=== PATIENT | female | born 1960 | race Caucasian/White ===

== ENCOUNTER 2024-10-23 11:44 | Emergency (ER) | payer OTHER, MEDICAID ==
[~2024-10-23] VITALS: Ht 162.6 cm; Wt 84.0 kg
[2024-10-23 12:25] LABS: Basophils # (auto) 0 10 ^3/uL (0-0.2); Basophils % (auto) 0.5 % (0.0-2.0); Eosinophils # (auto) 0.1 10 ^3/uL (0-0.8); Eosinophils % (auto) 1.8 % (0.0-7.0); Hematocrit 36.3 % (36.0-46.0); Hemoglobin 12.4 g/dL (12.2-16.2); Lymphocytes # (auto) 1.9 10 ^3/uL (0.4-5.4); Mean Corpuscular Hemoglobin 30.2 pg (28.0-32.0); Mean Corpuscular Hgb Conc. 34.1 g/dL (32.0-36.0); Mean Corpuscular Volume 88.8 fL (80.0-100.0); Monocytes # (auto) 0.5 10 ^3/uL (0-1.3); Monocytes % (auto) 10.5 % (0.0-12.0); Neutrophils # (auto) 2.3 10 ^3/uL (1.6-8.6); Neutrophils % (auto) 48.2 % (37.0-80.0); Nucleated Red Blood Cells % 0.1 %; Platelet Count (auto) 313 10^3/uL (140-450); Red Blood Cells 4.09 10^6/uL (4.0-5.20); Red Cell Distribution Width 13.4 % (11.8-14.3); White Blood Cell 4.8 10^3/uL (4.4-10.8)
[2024-10-23 12:36] LABS: Alanine Aminotransferase 18 U/L (7-40); Albumin 4.4 g/dL (3.2-4.8); Alkaline Phosphatase 98 U/L (46-116); Anion Gap 9 (5-15); Aspartate Aminotransferase 17 U/L (13-40); BUN/Creatinine Ratio 22.6 (10.0-20.0); Bilirubin, Total 0.4 mg/dL (0.2-1.0); Blood Urea Nitrogen 14 mg/dL (9-23); Calcium 9.3 mg/dL (8.7-10.4); Carbon Dioxide 25 mmol/L (20-31); Chloride 106 mmol/L (98-107); Glucose 101 mg/dL (74-106); Potassium 3.8 mmol/L (3.5-5.1); Sodium 140 mmol/L (136-145); Total Protein 6.4 g/dL (5.7-8.2)
[2024-10-23 12:39] LABS: Lipase 118 U/L (12-53)
--- NOTE | 2024-10-23 13:08 | DVH ---
XY CHEST TWO VIEWS ROUTINE CLINICAL HISTORY: chest pain COMPARISON: None TECHNIQUE: Frontal and lateral view of the chest was obtained FINDINGS: Lines and Tubes: None Lungs: 18 mm left apical lung mass Pleura: No effusion. No pneumothorax. Cardiomediastinal contours: Unremarkable Bones: No acute osseous abnormality. IMPRESSION: 18 mm left apical lung mass . CT recommended
--- NOTE | 2024-10-23 14:46 | ED.PDOC ---
HPI Comments 64-year-old female with PMHx HTN, HLD brought in by EMS presents with a chief complaint of chest pain x 1 hour prior to arrival. Patient was at the [facility] when she had onset of chest pain. Patient states that her pain was localized to her retrosternal chest area, radiating to her jaw, described as sharp, and rates it a 4/10. Patient states at time of assessment that the pain is gone and that after she received 324mg ASA and 0.4 SL Nitro she feels a lot better. Patient denies any nausea, vomiting, diarrhea, abdominal pain, or SOB. No other symptoms or modifying factors present at this time. Chief Complaint: Chest Pain Time Seen by MD: 14:29 Reviewed Notes: Medications, Allergies Allergies: Coded Allergies: NO KNOWN ALLERGIES (Unverified , 10/23/24) Home Meds Active Scripts Nitroglycerin (NTROSTAT SUBLINGUAL) 0.4 Mg Sl, 0.4 MG SL q 5 min x3 PRN, #30 TAB *MAY REPEAT EVERY 5 MINUTES X 3 TOTAL IF NO RELIEF, call 911 or seek immediate medical attention. *Do not crush. 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 Family History Family History: Reviewed,noncontributory to illness Social History Smoker: Non-Smoker Alcohol: Denies ETOH Use Drugs: Denies Drug Use Lives In: Home Constitutional: denies: chills, diaphoresis, fatigue, fever, malaise, sweats, weakness, others EENTM: denies: blurred vision, double vision, ear bleeding, ear discharge, ear drainage, ear pain, ear ringing, eye pain, eye redness, hearing loss, mouth pain, mouth swelling, nasal discharge, nose bleeding, nose congestion, nose pain, photophobia, tearing, throat pain, throat swelling, voice changes, others Respiratory: denies: cough, hemoptysis, orthopnea, SOB at rest, shortness of breath, SOB with excertion, stridor, wheezing, others Cardiovascular: reports: chest pain; denies: dizzy spells, diaphoresis, Dyspnea on exertion, edema, irregular heart beat, left arm pain, lightheadedness, palpitations, PND, syncope, others Gastrointestinal: denies: abdomen distended, abdominal pain, blood streaked bowels, constipated, diarrhea, dysphagia, difficulty swallowing, hematemesis, melena, nausea, poor appetite, poor fluid intake, rectal bleeding, rectal pain, vomiting, others Genitourinary: denies: abnormal vagina bleeding, burning, dyspareunia, dysuria, flank pain, frequency, hematuria, incontinence, pain, , vagina discharge, urgency, others Neurological: denies: dizziness, fainting, headache, left sided numbness, left sided weakness, numbness, paresthesia, pre-existing deficit, right sided n umbness, right sided weakness, seizure, speech problems, tingling, tremors, weakness, others Musculoskeletal: denies: back pain, gout, joint pain, joint swelling, muscle pain, muscle stiffness, neck pain, others Integumetry: denies: bruises, change in color, change in hair/nails, dryness, laceration, lesions, lumps, rash, wounds, others Allergic/Immunocompromised: denies: Difficulty Healing, Frequent Infections, Hives, Itching, others Hematologic/Lymphatic: denies: anemia, blood clots, easy bleeding, easy bruising, swollen glands, others Endocrine: denies: excessive hunger, excessive sweating, excessive thirst, excessive urination, flushing, intolerance to cold, intolerance to heat, unexplained weight gain, unexplained weight loss, others Psychiatric: denies: anxiety, bipolar disorder, depression, hopeless, panic disorder, schizophrenia, sleepless, suicidal, others All Other Systems: Reviewed and Negative Physical Exam General Appearance: No Apparent Distress HEENT: Other (Pupils and face symmetric. Moist mucous membranes.) Neck: Full Range of Motion, Normal Inspection Respiratory: Lungs Clear, No Accessory Muscle Use, No Respiratory Distress, Normal Breath Sounds Cardiovascular: No Edema, No JVD, Regular Rate/Rhythm Breast Exam: Deferred Gastrointestinal: Non Tender, Soft Genitalia: Deferred Pelvic: Deferred Rectal: Deferred Extremities: Normal inspection, Normal range of motion, Non-tender, No pedal edema Neurologic: Alert (Oriented x4), Normal Affect, Normal Mood, Other (Ambulatory) Cerebellar Function: NOT DONE Reflexes: NOT DONE Skin: Dry, Normal Color, Warm Lymphatic: NOT DONE EKG EKG : Comments Sinus rhythm, rate 72, normal ND interval, QRS 150, QTC 483, normal axis, occasional PACs, right bundle branch block and left posterior fascicular block, nonspecific T change. Was a procedure done? Was a procedure done?: No CP Differential Dx Differential Diagnosis: Angina, Anxiety / Panic Attack, MT, Pulmonary Embolus Differential Diagnosis: CHF Differential Diagnosis: Angina, Chest Wall Pain, Esophageal reflux/spasm, Pericarditis, Pneumonia X-Ray, Labs, Meds, VS Vital Signs Date Time Temp Pulse Resp B/P (MAP) Pulse Ox O2 Delivery O2 Flow Rate FiO2 10/23/24 16:35 88 18 166/95 (118) 97 10/23/24 16:26 82 20 96 Room Air* 0 21 10/23/24 11:47 72 10/23/24 11:44 98.8 88 18 157/87 (110) 99 98.8 Lab Test 10/23/24 16:45 10/23/24 12:55 10/23/24 12:00 Range/Units Troponin I High Sensitivity 12 13 13 </=34 ng/L White Blood Count 4.8 4.4-10.8 10^3/uL Red Blood Count 4.09 4.0-5.20 10^6/uL Hemoglobin 12.4 12.2-16.2 g/dL Hematocrit 36.3 36.0-46.0 % Mean Corpuscular Volume 88.8 80.0-100.0 fL Mean Corpuscular Hemoglobin 30.2 28.0-32.0 pg Mean Corpuscular Hemoglobin Concent 34.1 32.0-36.0 g/dL Red Cell Distribution Width 13.4 11.8-14.3 % Platelet Count 313 140-450 10^3/uL Mean Platelet Volume 7.8 6.9-10.8 fL Neutrophils (%) (Auto) 48.2 37.0-80.0 % Lymphocytes (%) (Auto) 39.0 10.0-50.0 % Monocytes (%) (Auto) 10.5 0.0-12.0 % Eosinophils (%) (Auto) 1.8 0.0-7.0 % Basophils (%) (Auto) 0.5 0.0-2.0 % Neutrophils # (Auto) 2.3 1.6-8.6 10 ^3/uL Lymphocytes # (Auto) 1.9 0.4-5.4 10 ^3/uL Monocytes # (Auto) 0.5 0-1.3 10 ^3/uL Eosinophils # (Auto) 0.1 0-0.8 10 ^3/uL Basophils # (Auto) 0 0-0.2 10 ^3/uL Nucleated Red Blood Cells 0.1 % Sodium Level 140 136-145 mmol/L Potassium Level 3.8 3.5-5.1 mmol/L Chloride Level 106 98-107 mmol/L Carbon Dioxide Level 25 20-31 mmol/L Anion Gap 9 5-15 Blood Urea Nitrogen 14 9-23 mg/dL Creatinine 0.62 0.550-1.02 mg/dL Glomerular Filtration Rate Calc 98 >90 mL/min BUN/Creatinine Ratio 22.6 H 10.0-20.0 Serum Glucose 101 74-106 mg/dL Calcium Level 9.3 8.7-10.4 mg/dL Total Bilirubin 0.4 0.2-1.0 mg/dL Aspartate Amino Transferase (AST) 17 13-40 U/L Alanine Aminotransferase (ALT) 18 7-40 U/L Alkaline Phosphatase 98 46-116 U/L B-Type Natriuretic Peptide 5.07 0-100 pg/mL Total Protein 6.4 5.7-8.2 g/dL Albumin 4.4 3.2-4.8 g/dL Lipase 118 H 12-53 U/L PROCEDURE(s): CXR2 - CHEST TWO VIEWS ROUTINE REASON: chest pain ORDER NUMBER(s): [id number], ACCESSION NUMBER(s): [id number] XY CHEST TWO VIEWS ROUTINE CLINICAL HISTORY: chest pain COMPARISON: None TECHNIQUE: Frontal and lateral view of the chest was obtained FINDINGS: Lines and Tubes: None Lungs: 18 mm left apical lung mass Pleura: No effusion. No pneumothorax. Cardiomediastinal contours: Unremarkable Bones: No acute osseous abnormality. IMPRESSION: 18 mm left apical lung mass . CT recommended X-Ray, Labs, Meds, VS Comment 64-year-old female with a history of hypertension and dyslipidemia complaining of chest pain Vitals remarkable for BP 157/87 Exam unremarkable Rhythm strip independently interpreted by me: Sinus rhythm, rate 82, occasional PACs Chest x-ray IMPRESSION: 18 mm left apical lung mass . CT recommended CBC, CMP, BNP and 3 serial troponins unremarkable for any abnormality of acute significance . Lipase 118 Patient treated with aspirin 324 mg p.o. and nitroglycerin 0.4 mg sublingual x1 by EMS with resolution of her chest pain. No additional treatment was necessary in the ED. Case discussed with Naresh MCKAY RP, Dr., who will arrange for the patient to have urgent follow-up with her primary physician for referral to Cardiology and further evaluation of the lung mass and asymptomatic elevated lipase. Authorization [id number] Time of 1ST Reevaluation: 14:59 Reevaluation 1ST: Unchanged Patient Education/Counseling: Diagnosis, Treatment Family Education/Counseling: No Family Present Departure 1 Departure Time of Disposition: 17:00 Impression: Primary Impression: Chest pain Qualified Codes: R07.9 - Chest pain, unspecified Disposition: 01 HOME / SELF CARE / HOMELESS Condition: Stable Additional Instructions: Your blood tests, including screening tests for heart attack and heart failure were unremarkable. Your chest x-ray showed an abnormality, which can be followed up by your primary doctor. Naresh will contact you for further evaluation by your primary doctor and referral to a labor economist. I have prescribed medication for chest pain. [place] [id number] Ph: [phone] DIAGNOSTIC IMAGING Diagnostic Imaging Report : [id number] Signed PATIENT: ANA ROSA VALDES ACCT: [id number] UNIT: [id number] : 1960 LOC: ER ROOM / BED: / AGE / SEX: 64 / F ADM STATUS: REG ER SERVICE 1151 ORDERING PHYSICIAN: BEV WHITAKER MD PROCEDURE(s): CXR2 - CHEST TWO VIEWS ROUTINE REASON: chest pain ORDER NUMBER(s): [id number], ACCESSION NUMBER(s): [id number] XY CHEST TWO VIEWS ROUTINE CLINICAL HISTORY: chest pain COMPARISON: None TECHNIQUE: Frontal and lateral view of the chest was obtained FINDINGS: Lines and Tubes: None Lungs: 18 mm left apical lung mass Pleura: No effusion. No pneumothorax. Cardiomediastinal contours: Unremarkable Bones: No acute osseous abnormality. IMPRESSION: 18 mm left apical lung mass . CT recommended e-Prescriptions Nitroglycerin (NTROSTAT SUBLINGUAL) 0.4 Mg Sl 0.4 MG SL q 5 min x3 PRN, #30 TAB *MAY REPEAT EVERY 5 MINUTES X 3 TOTAL IF NO RELIEF, call 911 or seek immediate medical attention. *Do not crush. Prov: ANAYA JEFFERY MD 10/23/24 Discharged With: Relative Critical Care Note Critical Care Time?: No Stability Stability form required: No Heart Score Heart Score: Heart Score Response (Comments) Value History Moderate Suspicious 1 EKG Repolarization Disturb 1 Age >65 2 Risk Factors 1 or 2 risk factors 1 Troponin Normal limit 0 Total 5 I personally scribed for ANAYA JEFFERY MD ([email or web address]) on 10/23/24 at 14:46. Electronically submitted by Segundo Neff ([email or web address]). ANAYA JEFFERY MD October 23, 2024 14:46
[2024-10-23 16:26] VITALS: PULSE 82; RESP 20; O2SAT 96
[2024-10-23] MEDS ORDERED: NITR0.4S29 SL (16:59)
[2024-10-23 18:26] VITALS: BP 146/63; PULSE 62; RESP 16; TEMP 97.7; O2SAT 97
--- NOTE | 2024-10-23 18:50 | ECG ---
[facility] Test Date: 2024-10-23 Test Time: 11:47:59 Pat Name: ANA ROSA VALDES Department: ED Room: Gender: F Technical Director: carlton : 1960 Requested By: BEV WHITAKER Order Number: [id number] Reading MD: Juwan Taylor Measurements Intervals [place] Rate: 72 P: 90 TX: 174 QRS: 94 QRSD: 150 T: 69 QT: 441 QTc: 483 Interpretive Statements Sinus rhythm Atrial premature complexes Consider left atrial enlargement RBBB and LPFB Electronically Signed On 10-24-2024 21:02:49 PDT by Juwan Taylor Please click the below link to view image of tracing.
== END 2024-10-23 18:28 | disposition home or self-care (01) ==
LOC: EDBD 11:44 → ER 11:52
DX: R07.9 Chest pain, unspecified (principal); R68.84 Jaw pain; E78.5 Hyperlipidemia, unspecified; I10 Essential (primary) hypertension; Z79.899 Other long term (current) drug therapy; Z98.890 Other specified postprocedural states
CPT/HCPCS: 36415; 71046; 80053; 83690; 83880; 84484; 85025; 93005